=== PATIENT | male | born 1955 | race Hispanic/Latino ===

== ENCOUNTER 2017-08-02 16:11 | Outpatient (RCR) | payer OTHER | END 2017-08-09 | LOC: PT 16:11 | PROVIDERS: ATTEND Internal Medicine | DX: M25.512 Pain in left shoulder (principal); M25.612 Stiffness of left shoulder, not elsewhere classified; M62.81 Muscle weakness (generalized) ==

== ENCOUNTER 2017-08-14 16:10 | Outpatient (RCR) | payer OTHER | END 2017-09-06 | LOC: PT 16:10 | PROVIDERS: ATTEND Internal Medicine | DX: M25.512 Pain in left shoulder (principal); M25.612 Stiffness of left shoulder, not elsewhere classified; M62.81 Muscle weakness (generalized) ==

== ENCOUNTER 2022-01-14 16:05 | Emergency (ER) | payer SELFPAY ==
[~2022-01-14] VITALS: Ht 167.6 cm; Wt 92.5 kg
== END 2022-01-14 17:14 | disposition home or self-care (01) ==
LOC: ER 16:23
DX: I83.891 Varicose veins of right lower extremity with other complications (principal); I10 Essential (primary) hypertension; E11.9 Type 2 diabetes mellitus without complications; E78.5 Hyperlipidemia, unspecified; Z85.810 Personal history of malignant neoplasm of tongue; Z85.850 Personal history of malignant neoplasm of thyroid
CPT/HCPCS: 99283